=== PATIENT | female | born 1955 | race African-American/Black ===

== ENCOUNTER → 2016-09-10 | Outpatient (CLI) | payer SELFPAY ==
[~2016-09-10] MED LIST: CEPH500C2 PO; COD1CAPS
--- NOTE | 2016-09-10 15:47 | DI ---
Indication: ITS.REASON: N95.0 Postmenopausal bleeding PROCEDURE: US PELVIC NON OB W/TRANS VAG: Encounter: Initial Comparison: None FINDINGS: Transvaginal and transabdominal pelvic imaging was performed. The uterus measures 6.4 x 3.5 x 5.1 cm. The parenchyma is heterogeneous with fibroids. There is a shadowing myometrial fibroid in the right aspect of the uterus measuring 2.1 x 1.9 x 2.4 cm in size with internal vascular flow. The endometrial stripe measures 5 mm in thickness. There is no evidence of focal endometrial mass. Both ovaries are identified and normal in appearance. The right ovary measures 1.9 x 1.1 x 1.6 cm. The left ovary measures 1.4 x 0.8 x 1.9 cm. There are no abnormal adnexal masses detected. IMPRESSION: Normal endometrial thickness. Uterine fibroid. .
== END ==
LOC: IMA 14:30
PROVIDERS: ATTEND Obstetrics & Gynecology
DX: N95.0 Postmenopausal bleeding (principal); D25.9 Leiomyoma of uterus, unspecified